=== PATIENT | male | born 1990 | race Caucasian/White ===

== ENCOUNTER 2020-08-12 11:33 | Emergency (ER) | payer OTHER ==
[~2020-08-12] VITALS: Ht 160 cm; Wt 77.0 kg
[2020-08-12] MEDS ORDERED: IBUPROFEN 600MG TABLET PO STA (11:47)
[2020-08-12] MEDS ORDERED: NAPR500T7 PO (13:14)
[2020-08-12 13:38] VITALS: BP 106/60
== END 2020-08-12 13:39 | disposition home or self-care (01) ==
LOC: ER 11:33
DX: M54.41 Lumbago with sciatica, right side (principal); H52.7 Unspecified disorder of refraction
CPT/HCPCS: 99282